=== PATIENT | female | born 1995 | race Caucasian/White ===

== ENCOUNTER 2019-02-09 07:27 | Emergency (ER) | payer BC, OTHER ==
[~2019-02-09] VITALS: Ht 160 cm; Wt 104.3 kg
[2019-02-09 08:35] LABS: ABSOLUTE NEUTROPHILS 5.3 thou/uL (1.4-8.2); BASOPHILS 0.9 % (0.0-2.0); EOSINOPHILS 2.9 % (0.0-3.0); HEMATOCRIT 32.6 % (37.0-47.0); HEMOGLOBIN 10.5 gm/dL (12.0-15.0); LYMPHOCYTES 24.4 % (24.0-44.0); MCH 25.2 pg (26.0-34.0); MCHC 32.2 g/dL (28.0-37.0); MCV 78.4 fL (80.0-100.0); MONOCYTES 4.8 % (1.0-8.0); PLATELET COUNT 291 thou/uL (150-400); RBC 4.16 mil/uL (4.20-5.00); RDW 15.1 % (10.5-14.5); WBC 7.9 thou/uL (4.0-11.0)
[2019-02-09 08:43] LABS: CALCIUM 9.2 mg/dL (8.5-10.1); CREATININE 0.7 mg/dL (0.6-1.0); MAGNESIUM 1.9 mg/dL (1.8-2.4); POTASSIUM 3.7 mmol/L (3.5-5.1)
[2019-02-09] MEDS ORDERED: UNICOMPLEX M TA1 TA1 PO (09:10)
[2019-02-09 09:21] VITALS: BP 109/57
--- NOTE | 2019-02-09 16:40 | EKG ---
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1995 Requested By: Wendy Chandler Order Number: [id number] MD: Michael Hodges Measurements Intervals [place] Rate: 70 P: 13 AR: 138 QRS: 21 QRSD: 92 T: 33 QT: 393 QTc: 425 Interpretive Statements Sinus rhythm No previous ECG available for comparison Electronically Signed On 02-09-2019 16:40:00 CDT by Michael Hodegs [email or web address] ��������������������������������������������� <ELECTRONICALLY SIGNED> ���������������������������������������� By: Michael Hodges MD ��������������������������������������������� 02/09/19 1640 0737 0737 Michael Hodges MD /EPI
== END 2019-02-09 09:27 | disposition home or self-care (01) ==
LOC: ER 07:27
PROVIDERS: Emergency Medicine Emergency Medical Services
DX: R06.02 Shortness of breath (principal); T43.225A Adverse effect of selective serotonin reuptake inhibitors, initial encounter; Z98.890 Other specified postprocedural states; Y92.89 Other specified places as the place of occurrence of the external cause